=== PATIENT | female | born 2000 | race Two or more races ===

== ENCOUNTER 2025-01-09 02:10 | Observation (INO) | payer MEDICAID, SELFPAY ==
[2025-01-09] VITALS (33 sets, daily range): BP systolic 89–151; BP diastolic 52–126; PULSE 72–150; RESP 15–98; TEMP 36.3–37.1; O2SAT 95–100; BMI 33.1
--- NOTE | 2025-01-09 02:44 | EDNOTE_ITS ---
ED Abdominal Pain RME/HPI General Chief Complaint: Abdominal Pain Stated complaint: ABD PAIN Time seen by provider: 01/09/25 02:43 Arrival date/time: 01/09/25 02:10 RME / HPI RME / HPI narrative: This section includes all my notes and documentations, including HPI, PE, and ED course. Dilip Lerner MD HPI: 24 y/o female presents to ED BIB c/o sudden lower abdominal pain and almost passing out x 1.5 hours ago. states he caught patient before she fell to the floor. Denies vomiting but severe nausea. Pain began on the lower left side and spread to the left. Patient has an IUD inserted and denies any chance of . No other complaints. ROS: All negative except as documented in HPI. Physical Exam: General: Alert and oriented. In severe pain. Eyes: Conjunctivae and lids clear. ENT: No nasal congestion. Neck: Supple. Heart: RRR. Lungs: No respiratory distress. Good air movement. No rhonchi, wheezing, rales. Abdomen: Soft with severe lower tenderness. Normal bowel sounds. No distension. No rebound or guarding. Back: No CVA tenderness. Skin: Warm and dry. Neuro: Alert and oriented X 3. I reviewed all diagnostic test results. My interpretation of the EKG is NSR (99 bpm) with no ST-T changes. Dilip Lerner MD My review of the Transvaginal US report is pending. Blood tests and urine tests pending. At this point, diagnoses include ectopic , possibly ruptured. Treatment from me here included Sodium Chloride, Toradol, Zofran, Hydromorphone HCl. I discussed the case with Dr Dominguez, our CHANDELIER [employer]KER. About the presentation and exam and diagnostics and treatments here. And need of further care in the hospital. Will be here and see the patient. At 6 AM on 01/09/25, the care of the patient was transferred to Dr. Haines. Dilip Lerner MD Related Data Previous Rx's ?Medication ?Instructions ?Recorded hydrocodone 5 mg-acetaminophen 325 1 tab PO Q4H PRN pa in #30 tabs 01/09/25 mg tablet ketorolac 10 mg tablet 10 mg PO Q6H PRN pain 5 days #20 01/09/25 tabs ondansetron HCl 4 mg tablet 4 mg PO Q6H PRN nausea and 01/09/25 vomiting #20 tabs hydrocodone 5 mg-acetaminophen 325 1 tab PO Q6H PRN pa in #20 tabs 01/11/25 mg tablet ketorolac 10 mg tablet 10 mg PO Q6H PRN pain 5 days #20 01/11/25 tabs Allergies Allergy/AdvReac Type Severity Reaction Status Date / Time No Known Allergies Allergy Verified 01/11/25 10:27 Review of Systems Review of Systems Systems Reviewed: All systems reviewed, normal except as documented Narrative Review of Systems: Refer to HPI above. Past Medical History Past Medical History REPRODUCTIVE: Positive Previous Pregnancies (D&C 2015) ED Exam Narrative Physical exam: Refer to HPI above. Course Quality Measures none Orders Category Date Time Status Patient Condition Routine Admission 01/09/25 08:[address] in Surgical Day Care Routine Admission 01/09/25 08:25 Active Abdominal Binder if Pt Desires x1 Care 01/09/25 10:57 Completed Activity as Tolerated Routine Care 01/09/25 08:[address] Screening NOW Care 01/09/25 02:45 Completed EKG (ED ONLY) *Do not use* NOW Care 01/09/25 02:44 Completed Insert IV NOW Care 01/09/25 02:43 Completed Intake and Output Routine Care 01/09/25 10:57 Ordered Notify provider NEEDED Care 01/09/25 08:27 Completed Notify provider NEEDED Care 01/09/25 10:57 Completed Sequential Compression Device NOW Care 01/09/25 08:27 Completed Straight [In and Out Catheter] X1 Care 01/09/25 02:45 Completed Consult to Obstetrics Stat Cons 01/09/25 05:35 Ordered Diet Regular Diet 01/09/25 Dinner Active EKG (ED Only) Stat Exams 01/09/25 02:44 Draft EKG (ED Only) Stat Exams 01/09/25 02:44 Stop Req US transvaginal Stat Exams 01/09/25 02:46 Completed Amylase Stat Lab 01/09/25 02:55 Completed Beta HCG,Quantitative Stat Lab 01/09/25 02:55 Completed Bilirubin,Direct Stat Lab 01/09/25 02:55 Completed CBC AM DRAW Lab 01/10/25 05:29 Completed CBC Stat Lab 01/09/25 02:55 Completed CBC Stat Lab 01/09/25 11:06 Completed CMP [Comprehensive Metabolic Panel] Stat Lab 01/09/25 02:55 Completed CMP [Comprehensive Metabolic Panel] Stat Lab 01/09/25 11:06 Completed CRP [C-Reactive Protein] Stat Lab 01/09/25 02:55 Completed ESR [Sed Rate (ESR)] Stat Lab 01/09/25 02:55 Completed HCG Qualitative,Urine Stat Lab 01/09/25 02:55 Completed Lipase Stat Lab 01/09/25 02:55 Completed Magnesium Stat Lab 01/09/25 02:55 Completed Procalcitonin Stat Lab 01/09/25 02:55 Completed Type and Screen Stat Lab 01/09/25 09:35 Results UA, C/S IF [Urinalysis, C/S if Indicated] Stat Lab 01/09/25 02:55 Completed Urine Culture Stat Lab 01/09/25 02:55 Completed Acetaminophen Ivpb [Ofirmev Inj] 100 ml Med 01/09/25 08:51 Discontinued IV .STK-MED Acetaminophen Tab [Tylenol Tab] Med 01/09/25 10:57 Discontinued 325 mg PO Q4HR PRN Acetaminophen Tab [Tylenol Tab] Med 01/09/25 10:57 Discontinued 650 mg PO Q6HR PRN Albumin Human 5% Ivpb [Albuminar-5 Ivpb] Med 01/09/25 09:36 Discontinued 12.5 gm in 250 ml IV .STK-MED Bupivacaine Mpf 0.5% [Sensorcaine-Mpf Inj 0.5%] Med 01/09/25 08:10 Discontinued 30 ml .ROUTE .STK-MED ONE Glycopyrrolate Inj [Robinul Inj] Med 01/09/25 08:38 Discontinued 1 mg .ROUTE .STK-MED ONE HYDROcodone*/APAP 5/325 [Nettie 5/325] Med 01/09/25 10:57 Discontinued 1 tab PO Q4HR PRN HYDROcodone*/APAP 5/325 [Nettie 5/325] Med 01/09/25 10:57 Discontinued 2 tab PO Q6HR PRN HYDROmorphone INJ [Dilaudid Inj] Med 01/09/25 10:32 Discontinued 0.4 mg IV Q5M PRN HYDROmorphone INJ [Dilaudid Inj] Med 01/09/25 08:38 Discontinued 2 mg .ROUTE .STK-MED ONE HYDROmorphone INJ [Dilaudid Inj] Med 01/09/25 02:45 Discontinued 2 mg IVP X1 ONE HYDROmorphone INJ [Dilaudid Inj] Med 01/09/25 03:44 Discontinued 2 mg IVP X1 ONE Ibuprofen Tab [Motrin Tab] Med 01/09/25 10:57 Discontinued 800 mg PO Q8HR PRN Ketamine Inj Med 01/09/25 08:50 Discontinued 50 mg .ROUTE .STK-MED ONE Ketorolac Inj [Toradol Inj] Med 01/09/25 02:45 Discontinued 30 mg IVP X1 ONE LORazepam [Ativan Inj] Med 01/09/25 04:20 Discontinued 2 mg IVP X1 ONE Meperidine Inj [Demerol Inj] Med 01/09/25 10:32 Discontinued 12.5 mg IV Q5M PRN Midazolam Inj [Versed Inj] Med 01/09/25 08:37 Discontinued 2 mg .ROUTE .STK-MED ONE Milk Of Magnesia Susp [Mom Susp] Med 01/09/25 10:57 Discontinued 30 ml PO PRNMRX1 PRN Ondansetron Inj [Zofran Inj] Med 01/09/25 02:45 Discontinued 4 mg IV X1 ONE Ondansetron Inj [Zofran Inj] Med 01/09/25 10:32 Discontinued 4 mg IV X1 ONE PHENYLEPHRINE INJ in NS [Juan-synephrine Inj/Ns] Med 01/09/25 09:03 Discontinued 1,000 mcg .ROUTE .STK-MED ONE POTASSIUM CHL 10 mEq IVPB [Kcl Ivpb] Med 01/09/25 05:33 Discontinued 10 meq in 100 ml IV X1 Propofol Inj [Diprivan Inj] Med 01/09/25 08:37 Discontinued 200 mg IV .STK-MED ONE Ringers Lactated 1000 ml [Lactated Ringers] 1,000 ml Med 01/10/25 03:00 Discontinued IV 100 mls/hr Rocuronium Inj [Zemuron Inj] Med 01/09/25 08:37 Discontinued 100 mg .ROUTE .STK-MED ONE Simethicone [Mylicon Chew] Med 01/09/25 10:57 Discontinued 80 mg PO Q4HR PRN Sodium Chloride 0.9% 1000 ml [Ns] 1,000 ml Med 01/09/25 02:45 Discontinued IV 999 mls/hr Sugammadex Inj [Bridion Inj] Med 01/09/25 10:29 Discontinued 200 mg .ROUTE .STK-MED ONE Tranexamic Acid 1,000 mg Ivpb [Tranexamic Acid Ivpb] Med 01/09/25 10:05 Discontinued 1,000 mg in 100 ml IV .STK-MED ceFAZolin/D5W 1 GM IVPB [Ancef Ivpb] Med 01/09/25 08:30 Discontinued 1 gm in 50 ml IV X1 cefTRIAXone [Rocephin] 1,000 mg Med 01/09/25 04:01 Discontinued SODIUM CHLORIDE 0.9% (Popper) [Ns 0.9% (P)] 50 ml IV X1 fentaNYL INJ [Sublimaze Inj] Med 01/09/25 08:36 Discontinued 100 mcg .ROUTE .STK-MED ONE Code Status Routine Oth 01/09/25 08:23 Completed Oxygen Delivery PRN RT 01/09/25 10:32 Completed Transfer Order Routine Transfer 01/09/25 11:20 Completed Vital Signs Vital signs: Vital Signs Temperature 97.6 F 01/09/25 02:30 Pulse Rate 150 H 01/09/25 02:30 Respiratory Rate 20 01/09/25 02:30 Blood Pressure 102/72 01/09/25 02:30 Pulse Oximetry (%) 100 01/09/25 02:30 Oxygen Delivery Method Room Air 01/09/25 02:30 Abdominal Pain MDM MDM Narrative MDM Narrative:: Scribe Attestation: IBecky am scribing for and in the presence of Dr. Lerner. Provider Notation: Although this document has been carefully reviewed, there may still be some phonetic and other typographical errors. These errors are purely grammatical due to imperfections in the software program and should not be construed in any way to compromise the substance of the patient's medical care during this visit. 24 y/o female presents to ED BIB c/o sudden lower abdominal pain and passing out x 1.5 hours. states he caught patient before she fell to the floor. Denies vomiting. Pain began on the lower right and spread towards the left. Patient has an IUD inserted and denies any chance of . Patient data External records reviewed:: [facility] previous records Clinical information provided by:: patient and spouse () Social determinants that could affect healthcare access:: none Patient has the following chronic illnesses:: None reported How is presenting disease/condition affected by chronic disease/condition?: no chronic disease (None reported) Evaluation data The following diagnostics were reviewed and interpreted by me:: lab results, radiology exam(s) and EKG tracing(s) (My interpretation of the EKG: NSR (99 bpm) with no ST-T changes. Dilip Lerner MD) Lab and/or radiology exams considered but not ordered:: None Interpretation Summary: Possible ruptured ectopic Medications / Prescriptions Medications or Prescriptions considered but not ordered:: None Medication administrations:: Medication Administration History Discontinued Medications Acetaminophen (Acetaminophen 325 Mg Tablet) 325 mg PO Q4HR PRN PRN Reason: Patient rated pain 1 to 2 Stop: 02/08/25 10:56 Acetaminophen (Acetaminophen 325 Mg Tablet) 650 mg PO Q6HR PRN PRN Reason: Patient rated pain of 3 Stop: 02/08/25 10:56 Hydrocodone Bitart/Acetaminophen (Hydrocodone/Apap 5/325 Tablet) 1 tab PO Q4HR PRN PRN Reason: Patient rated pain 7 to 8 Stop: 01/14/25 10:56 Last Admin: 01/10/25 12:43 Dose: 1 tab Documented By: Admin: 01/10/25 05:54 Dose: 1 tab Documented By: Admin: 01/09/25 18:50 Dose: 1 tab Documented By: SUMEET Hydrocodone Bitart/Acetaminophen (Hydrocodone/Apap 5/325 Tablet) 2 tab PO Q6HR PRN PRN Reason: Patient rated pain 9 to 10 Stop: 01/14/25 10:56 Bupivacaine HCl (Bupivacaine Mpf 0.5% 30 Ml Vial) Confirm Administered Dose 30 ml .ROUTE .STK-MED ONE Stop: 01/09/25 08:11 Fentanyl Citrate (Fentanyl Cit Inj 50 Mcg/Ml Amp 2ml) Confirm Administered Dose 100 mcg .ROUTE .STK-MED ONE Stop: 01/09/25 08:37 Glycopyrrolate (Glycopyrrolate Inj 0.2 Mg/Ml Vial 5 Ml) Confirm Administered Dose 1 mg .ROUTE .STK-MED ONE Stop: 01/09/25 08:39 Hydromorphone HCl (Hydromorphone Inj 2 Mg/Ml Vial) 2 mg IVP X1 ONE Stop: 01/09/25 02:46 Last Admin: 01/09/25 06:40 Dose: 2 mg Documented By: ANSON Hydromorphone HCl (Hydromorphone Inj 2 Mg/Ml Vial) 2 mg IVP X1 ONE Stop: 01/09/25 03:45 Last Admin: 01/09/25 03:59 Dose: 2 mg Documented By: ANSON Hydromorphone HCl (Hydromorphone Inj 2 Mg/Ml Vial) Confirm Administered Dose 2 mg .ROUTE .STK-MED ONE Stop: 01/09/25 08:39 Hydromorphone HCl (Hydromorphone Inj 2 Mg/Ml Vial) 0.4 mg IV Q5M PRN PRN Reason: PAIN SCALE 7-10 (Severe Stop: 01/09/25 12:33 Last Admin: 01/09/25 13:52 Dose: 0.4 mg Documented By: WOLFGANG Sodium Chloride (Ns) 1,000 mls @ 999 mls/hr IV .Q1H1M ONE Stop: 01/09/25 03:45 Last Infusion: 01/09/25 05:32 Dose: Infused Documented By: Admin: 01/09/25 04:00 Dose: 999 mls/hr Documented By: ANSON Ceftriaxone Sodium 1,000 mg/ (Sodium Chloride) 50 mls @ 100 mls/hr IV X1 ONE Stop: 01/09/25 04:30 Last Infusion: 01/09/25 05:32 Dose: Infused Documented By: Admin: 01/09/25 04:38 Dose: 100 mls/hr Documented By: OUMAR Potassium Chloride (Kcl Ivpb) 10 meq in 100 mls @ 100 mls/hr IV X1 ONE Stop: 01/09/25 06:32 Last Infusion: 01/09/25 07:36 Dose: Infused Documented By: Admin: 01/09/25 06:15 Dose: 100 mls/hr Documented By: ANSON Cefazolin Sodium/Dextrose (Ancef Ivpb) 1 gm in 50 mls @ 100 mls/hr IV X1 ONE Stop: 01/09/25 08:59 Last Admin: 01/09/25 11:30 Dose: Not Given Documented By: WOLFGANG Non-Admin Reason: wrong time Acetaminophen (Ofirmev Inj) Confirm Administered Dose 100 mls @ ud IV .STK-MED ONE Stop: 01/09/25 08:52 Albumin Human (Albuminar-5 Ivpb) Confirm Administered Dose 12.5 gm in 250 mls @ ud IV .STK-MED ONE Stop: 01/09/25 09:37 Tranexamic Acid (Tranexamic Acid Ivpb) Confirm Administered Dose 1,000 mg in 100 mls @ ud IV .STK-MED ONE Stop: 01/09/25 10:06 Lactated Ringer's (Lactated Ringers) 1,000 mls @ 100 mls/hr IV .Q10H SUZAN Stop: 02/09/25 02:59 Lactated Ringer's (Lactated Ringers) 1,000 mls @ 100 mls/hr IV .Q10H SUZAN Stop: 02/08/25 11:40 Last Admin: 01/10/25 05:55 Dose: 100 mls/hr Documented By: Infusion: 01/10/25 05:55 Dose: Infused Documented By: Admin: 01/09/25 20:05 Dose: 100 mls/hr Documented By: Infusion: 01/09/25 20:05 Dose: Infused Documented By: Admin: 01/09/25 11:55 Dose: 100 mls/hr Documented By: WOLFGANG Ibuprofen (Ibuprofen Tab 400 Mg Tablet) 800 mg PO Q8HR PRN PRN Reason: PAIN SCALE 4-6 (Moderate Stop: 02/08/25 10:56 Last Admin: 01/09/25 16:33 Dose: 800 mg Documented By: SUMEET Ketamine HCl (Ketamine Inj 50 Mg/Ml Syringe) Confirm Administered Dose 50 mg .ROUTE .STK-MED ONE Stop: 01/09/25 08:51 Ketorolac Tromethamine (Ketorolac Inj 30 Mg/Ml Vial) 30 mg IVP X1 ONE Stop: 01/09/25 02:46 Last Admin: 01/09/25 03:46 Dose: Not Given Documented By: EE Non-Admin Reason: Cancelled by Provider Lorazepam (Lorazepam 2 Mg/Ml Vial) 2 mg IVP X1 ONE Stop: 01/09/25 04:21 Last Admin: 01/09/25 06:40 Dose: Not Given Documented By: EE Non-Admin Reason: Patient Refused Magnesium Hydroxide (Milk Of Magnesia Susp 30 Ml Udc) 30 ml PO PRNMRX1 PRN PRN Reason: CONSTIPATION Stop: 02/08/25 10:56 Meperidine HCl (Meperidine Inj 50 Mg/Ml Vial) 12.5 mg IV Q5M PRN PRN Reason: PAIN SCALE 1-3 (mild Stop: 01/09/25 12:32 Midazolam HCl (Midazolam Inj 1 Mg/Ml Vial 2 Ml) Confirm Administered Dose 2 mg .ROUTE .STK-MED ONE Stop: 01/09/25 08:38 Non-Formulary Medication (Methotrexate Im) 50 syr SC NOW ONE Stop: 01/10/25 10:01 Ondansetron HCl (Ondansetron Inj 2 Mg/Ml Inj 2 Ml) 4 mg IV X1 ONE; Protocol Stop: 01/09/25 02:46 Last Admin: 01/09/25 04:02 Dose: 4 mg Documented By: ANSON Ondansetron HCl (Ondansetron Inj 2 Mg/Ml Inj 2 Ml) 4 mg IV X1 ONE Stop: 01/09/25 10:33 Phenylephrine HCl (Phenylephrine Inj In Ns 100 Mcg/Ml 10 Ml Syringe) Confirm Administered Dose 1,000 mcg .ROUTE .STK-MED ONE Stop: 01/09/25 09:04 Propofol (Propofol Inj 10 Mg/Ml Vial 20 Ml) Confirm Administered Dose 200 mg IV .STK-MED ONE Stop: 01/09/25 08:38 Rocuronium [place] (Rocuronium Inj 10 Mg/Ml Vial 10 Ml) Confirm Administered Dose 100 mg .ROUTE .STK-MED ONE Stop: 01/09/25 08:38 Simethicone (Simethicone 80 Mg Chew) 80 mg PO Q4HR PRN PRN Reason: GAS Stop: 02/08/25 10:56 Sugammadex Sodium (Sugammadex Inj 100 Mg/Ml 2ml Vial) Confirm Administered Dose 200 mg .ROUTE .STK-MED ONE Stop: 01/09/25 10:30 From me, she received Sodium Chloride, Toradol, Zofran, Dilaudid. Consultations Consultation(s) initiated? (list below): Yes Consultation #1 (Physician, Specialty, Details): I discussed the case with Dr Dominguez, our CHANDELIER MAKER. About the presentation and exam and diagnostics and treatments here. And need of further care in the hospital. Will be here and see the patient. Diagnosis Differential diagnosis abdominal pain: abdominal pain, acute appendicitis, calculus of kidney, constipation, diverticulitis, endometriosis, gastroenteritis, pancreatitis, small bowel obstruction and other (Ectopic , UTI, pyelonephritis, sepsis) Most likely diagnosis given after review of the tests above:: Complete diagnostic results are pending. Admission Indicated Admission indicated?: not indicated Explain why admission is indicated or not indicated:: Complete diagnostic results are pending. Admission Request Was there a request for admission?: No Disposition Plan Disposition Plan: other (specify) (Care of the patient was transferred to Dr. Haines. ) Discharge Plan Plan Patient Disposition: Other Care w/in Hosp ([facility]) Disposition Comment: Stable Problem List Clinical Impression: UTI (urinary tract infection), Ectopic Patient/Caregiver Discharge Instructions Discharge Activity: activity as tolerated Other Activity Instructions:: Pelvic rest x 2 weeks. Return to clinic weekly to check quantitative hCGs. [facility] to [facility] at 1100 on 01/12/25 for MTX tx, Diet Instructions: General Diet
--- NOTE | 2025-01-09 02:44 | EKG_ITS ---
[facility] Test Date: 2025-01-09 Pat Name: TENZIN ORTEGA Department: Room: - Gender: Female Chuck Boner: : 2000 Requested By: Dilip Santiago Order Number: [id number] Reading MD: Dilip Santiago Measurements Intervals [place] Rate: 99 P: 42 TN: 143 QRS: 62 QRSD: 93 T: 57 QT: 339 QTc: 435 Interpretive Statements SINUS RHYTHM No previous ECG available for comparison /store/S0/[id number]/ecg/[id number].pdf
--- NOTE | 2025-01-09 02:46 | XR_ITS ---
Examination: Transvaginal ultrasound of the pelvis, complete Technique: Transvaginal sonographic images pelvis performed using ladd scale imaging Exam date and time: January 09, 2025 1535 hours INDICATIONS: Pelvic pain beginning January 08, 2025 FINDINGS: Uterus 8.2 cm No uterine mass or intrauterine gestation Intrauterine device in the lower uterine segment. Heterogeneous mass adjacent to the uterus with enlarged left ovary 7.0 x 5.4 x 4.6 cm Right ovary 4.0 cm arterial flow Left ovarian arterial flow IMPRESSION: This is an incomplete study, suspicious for ectopic Please repeat this study short-term
[2025-01-09 03:03] LABS: Collection Type, Urine Clean Catch
[2025-01-09 03:07] LABS: Basophils # (Auto) 0.1 Thou/mm3 (0.0-0.2); Basophils % (Auto) 0 % (0-2.5); Eosinophils # (Auto) 0.1 Thou/mm3 (0.0-0.5); Eosinophils % (Auto) 1 % (0-10); HCG Qualitative,Urine Positive; Hematocrit 33.4 % (36.0-46.0); Hemoglobin 11.4 g/dL (12.0-16.0); Immature Granulocytes % (Auto) 0 % (0-0); Immature Granulocytes Auto 0.06 Thou/mm3 (0.00-0.00); Lymphocytes # (Auto) 4.1 Thou/mm3 (1.0-4.8); Lymphocytes % (Auto) 24 % (10-50); Mean Corpuscular HGB Conc 34.1 g/dl (31.0-37.0); Mean Corpuscular Hemoglobin 26.9 pg (25.0-35.0); Mean Corpuscular Volume 79 fL (80-100); Monocytes # (Auto) 0.7 Thou/mm3 (0.0-0.8); Monocytes % (Auto) 4 % (0-12); Neutrophils # (Auto) 11.9 Thou/mm3 (1.8-7.7); Neutrophils % (Auto) 71 % (37-80); Nucleated Red Blood Cell % 0 /100 WBC (0); Platelet Count 312 Thou/mm3 (140-440); RDW Standard Deviation 37.3 fL (36.4-46.3); Red Blood Count 4.24 Miln/mm3 (4.00-5.20); White Blood Count 16.9 Thou/mm3 (3.6-11.0)
[2025-01-09 03:21] LABS: Bilirubin,Urine Negative (Negative); Blood,Urine Negative (Negative); Clarity,Urine Turbid (Clear/Hazy); Color,Urine Yellow (Lt Yel-Yel); Glucose, Urine Negative (Negative); Ketones,Urine Trace (Negative); Leukocyte Esterase,Urine Negative (Negative); Nitrite,Urine Negative (Negative); Protein,Urine 2+ (Neg - Trace); RBC,Urine 2 /hpf (0-3); Specific Gravity,Urine 1.046 (1.001-1.035); Squamous Epithelial Cell,Urine 4 /hpf (0-5); WBC,Urine 18 /hpf (0-5)
[2025-01-09 03:26] LABS: Culture Indicated,Urine Yes
[2025-01-09 03:43] LABS: Sed Rate (ESR) 12 mm/hr (0-20)
[2025-01-09] MEDS: HYDROmorphone INJ 2 MG/ML VIAL IVP ×2 (03:59→06:40)
[2025-01-09] MEDS: SODIUM CHLORIDE 0.9% 1000 ML 1,000 ML 999 ML IV (04:00)
[2025-01-09] MEDS: ONDANSETRON INJ 2 MG/ML INJ 2 ML 4 MG IV (04:02)
[2025-01-09 04:27] LABS: Alanine Aminotransferase 69 U/L (10-49); Albumin/Globulin Ratio 1.5 (1.2-2.2); Alkaline Phosphatase 73 U/L (46-116); Amylase 56 U/L (30-118); Anion Gap 10 (7-16); Aspartate Amino Transferase 57 U/L (0-34); BUN/Creatinine Ratio 9 Ratio (12-20); Beta HCG,Quantitative 1806 mIU/mL (<5.0); Bilirubin,Direct 0.3 mg/dL (0.0-0.3); Blood Urea Nitrogen 9 mg/dL (9-23); C-Reactive Protein < 0.5 mg/dL (0.0-0.9); Carbon Dioxide 21.1 mMol/L (20.0-31.0); Chloride 105 mMol/L (98-107); Estimated Creatinine Clearance 94.6 mL/min (>60); Globulin 2.7 gm/dL (2.3-3.5); Glucose 173 mg/dL (74-106); Lipase 28 U/L (12-53); Magnesium 1.6 mg/dL (1.6-2.6); Osmolality,Calculated 274 (275-295); Procalcitonin < 0.04 ng/ml (0.0-0.49); Sodium 136 mMol/L (136-145); Total Protein 6.7 gm/dL (5.7-8.2); eGFR > 60 See Note
[2025-01-09] MEDS: cefTRIAXone 1,000 MG in SODIUM CHLORIDE 0.9% (Popper) 50 ML 100 MG IV (04:38)
[2025-01-09] MEDS: POTASSIUM CHL 10 mEq IVPB 10 MEQ/100 ML BAG 100 MEQ IV (06:15)
--- NOTE | 2025-01-09 06:21 | PD.EDADDENDU ---
Emergency Room Addendum Addendum Narrative: 0600: Care assumed from Dr. Lerner, the previous shift emergency physician. Past medical, surgical, social and family history reviewed. Vitals and home medications reviewed. I will assume the care of the patient at this time, pending remainder of diagnostic tests and final disposition. Please refer to the emergency department record for history and examination from initial visit.? Physical exam by me shows patient under no acute distress at this time. Patient left for surgery at 0830 hours. Diagnoses: - UTI - Ectopic RADIOLOGY Procedure(s): US transvaginal Accession Number(s): [id number] cc: Dilip Lerner MD; Kan Raza MD; NO PRIMARY/FAMILY,PHYSICIAN~ Examination: Transvaginal ultrasound of the pelvis, complete Technique: Transvaginal sonographic images pelvis performed using ladd scale imaging Exam date and time: January 09, 2025 1535 hours INDICATIONS: Pelvic pain beginning January 08, 2025 FINDINGS: Uterus 8.2 cm No uterine mass or intrauterine gestation Intrauterine device in the lower uterine segment. Heterogeneous mass adjacent to the uterus with enlarged left ovary 7.0 x 5.4 x 4.6 cm Right ovary 4.0 cm arterial flow Left ovarian arterial flow IMPRESSION: This is an incomplete study, suspicious for ectopic Please repeat this study short-term Dictated By: Kan Raza MD
--- NOTE | 2025-01-09 07:50 | PD.GYNCONS ---
LOGISTICS SUPPORT HPI Data of Consult Patient: new to practice Consult date: 01/09/25 Primary Care Provider: Physician No Primary/Family Consult Narrative Reason for consult: ectopic History of present illness: The patient is a 24-year-old -0-1-3 with a history of vaginal delivery x 3 in the past. Her children are age 7, 2, and 1. The patient was seeing an PRODUCT ADVISOR in [place] and had an IUD placed after the of her last child. It has been in place almost a year. She presented to the emergency room at around 2:00 in the morning with sudden onset of abdominal pain. Thr patient had a syncopal episode at home. Her brought her into the emergency room. The patient has a quantitative hCG of 1806 and a complex mass on an adnexa with some free fluid suggestive of a ruptured ectopic . Patient is having quite a bit of pain requiring IV Dilaudid in the emergency room. Her blood type is pending at the time of dictation. Patient is consented for a laparoscopic unilateral salpingectomy, removal of IUD, possible laparotomy. She denies any heavy vaginal bleeding or possibly passing clots. She has not checked her IUD strings in a while. cc:: cc: Past Medical History Past Medical History Comments PMH COMMENT: Patient denies any significant past medical history. Specifically no asthma, no diabetes, no hypertension. Patient has a history of vaginal delivery x 3 in the past. She had 1 missed AB with a D&C. This is the only time she has been under general anesthesia. She denies any laparoscopic surgery. She denies removal of gallbladder appendix or any other surgery besides her D&C. Meds Home Medications and Allergies Allergies Allergy/AdvReac Type Severity Reaction Status Date / Time No Known Allergies Allergy Verified 01/09/25 02:45 Exam - LOGISTICS SUPPORT Vital Signs Temp Pulse Resp BP Pulse Ox O2 Del Method 97.7 F 82 21 H 121/80 99 Room Air 01/09/25 07:22 01/09/25 07:22 01/09/25 07:22 01/09/25 07:22 01/09/25 07:22 01/09/25 07:22 Narrative Exam Patient appears pale. She is alert and cooperative. She had Dilaudid approximately an hour before I was called to bedside to examine her. Her is at bedside. Constitutional Constitutional: mild distress and cooperative Routine Abdominal Exam Abdominal: Present soft, tenderness, rebound and guarding Comments: Abdomen is soft it is diffusely tender no scars are present. Pelvic exam is deferred until the OR. LOGISTICS SUPPORT - Results Labs 01/09/25 02:55 01/09/25 02:55 Labs: Short CBC 01/09/25 Range/Units 02:55 WBC 16.9 H (3.6-11.0) Thou/mm3 Hgb 11.4 L (12.0-16.0) g/dL Hct 33.4 L (36.0-46.0) % Plt Count 312 (140-440) Thou/mm3 BMP 01/09/25 02:55 Sodium 136 Potassium 3.0 L Chloride 105 Carbon Dioxide 21.1 BUN 9 Creatinine 1.0 Glucose 173 H Calcium 9.0 Liver Function 01/09/25 Range/Units 02:55 Total Bilirubin 1.0 (0.3-1.2) mg/dL Direct Bilirubin 0.3 (0.0-0.3) mg/dL AST 57 H (0-34) U/L ALT 69 H (10-49) U/L Alkaline Phosphatase 73 (46-116) U/L Albumin 4.0 (3.5-5.0) gm/dL Urine 01/09/25 Range/Units 02:55 Urine Color Yellow (Lt Yel-Yel) Urine Clarity Turbid A (Clear/Hazy) Urine pH 6.0 (5.0-7.0) Ur Specific [place] 1.046 H (1.001-1.035) Urine Protein 2+ A (Neg - Trace) Urine Glucose (UA) Negative (Negative) Imaging and Cardiology US - abdomen: Status: image reviewed by me Additional comments: Pelvic ultrasound performed reviewed by me. Complex mass present with some free fluid suggestive of a ruptured ectopic . Assessment and Plan Assessment and plan (1) Ruptured right tubal ectopic causing hemoperitoneum: Status: Acute Assessment and plan: Patient is consented for a laparoscopic unilateral salpingectomy, possible laparotomy. Removal of IUD. The risks of surgery were discussed with patient and her . The risks include bleeding infection blood transfusion damage to bowel bladder blood vessels other organs prolonged hospital stay should any of the above occur. All questions were answered all consents were signed. Of note the also signed the consent as the patient had been given Dilaudid approximately an hour and a half prior to being consented for surgery.
--- NOTE | 2025-01-09 08:16 | PC.NURSE ---
REPORT GIVEN TO KEON ATKINS IN SURGERY ALL QUESTIONS ANSWERED
--- NOTE | 2025-01-09 10:48 | SUR.PHASEI ---
pt received from OR in recovery bay 1. pt asleep but responds to voice, breathing unlabored on oxymask 8l. v/s stable. pt dressing to abd dermabond x3 and periapd cdi. report received from Giovanna Carpio and Caesar DUNN.
[2025-01-09 11:17] LABS: Basophils % (Auto) 0 % (0-2.5); Eosinophils % (Auto) 0 % (0-10); Hematocrit 24.1 % (36.0-46.0); Immature Granulocytes % (Auto) 1 % (0-0); Immature Granulocytes Auto 0.07 Thou/mm3 (0.00-0.00); Lymphocytes # (Auto) 1.1 Thou/mm3 (1.0-4.8); Lymphocytes % (Auto) 8 % (10-50); Mean Corpuscular Hemoglobin 27.8 pg (25.0-35.0); Mean Corpuscular Volume 82 fL (80-100); Monocytes # (Auto) 0.7 Thou/mm3 (0.0-0.8); Monocytes % (Auto) 5 % (0-12); Neutrophils # (Auto) 11.7 Thou/mm3 (1.8-7.7); Neutrophils % (Auto) 86 % (37-80); Nucleated Red Blood Cell % 0 /100 WBC (0); Platelet Count 219 Thou/mm3 (140-440); RDW Standard Deviation 38.8 fL (36.4-46.3); Red Blood Count 2.95 Miln/mm3 (4.00-5.20); White Blood Count 13.5 Thou/mm3 (3.6-11.0)
[2025-01-09 11:24] LABS: Hemoglobin 8.2 g/dL (12.0-16.0)
[2025-01-09 11:33] LABS: Alanine Aminotransferase 51 U/L (10-49); Albumin, Serum 3.3 gm/dL (3.5-5.0); Albumin/Globulin Ratio 1.6 (1.2-2.2); Alkaline Phosphatase 52 U/L (46-116); Anion Gap 8 (7-16); Aspartate Amino Transferase 32 U/L (0-34); BUN/Creatinine Ratio 9 Ratio (12-20); Bilirubin,Total 0.5 mg/dL (0.3-1.2); Blood Urea Nitrogen 6 mg/dL (9-23); Calcium 7.1 mg/dL (8.3-10.6); Calcium (Corrected) 7.7 mg/dL (8.5-10.1); Carbon Dioxide 20.2 mMol/L (20.0-31.0); Chloride 106 mMol/L (98-107); Creatinine (Component) 0.7 mg/dL (0.6-1.3); Estimated Creatinine Clearance 135.2 mL/min (>60); Globulin 2.1 gm/dL (2.3-3.5); Glucose 104 mg/dL (74-106); Osmolality,Calculated 265 (275-295); Potassium 4.4 mMol/L (3.4-5.1); Sodium 134 mMol/L (136-145); Total Protein 5.4 gm/dL (5.7-8.2); eGFR > 60 See Note
[2025-01-09] MEDS: RINGERS LACTATED 1000 ML 1,000 ML 100 ML IV ×2 (11:55→20:05)
--- NOTE | 2025-01-09 13:30 | SUR.PHASEII ---
pt c/o pain to lower abd and difficulty urinating. bladder scan performed 523ml of urine seen on scan. Dr. Rodriguez contacted. new orders received.
[2025-01-09] MEDS: HYDROmorphone INJ 2 MG/ML VIAL 0.4 MG IV (13:52)
--- NOTE | 2025-01-09 14:00 | SUR.PHASEII ---
pt awake and alert, breathing unlabored on room air. v/s stable. pt dressing to abd x3 dermabond and peripad cdi. report called to Aleena Carpio. pt will be transferred to room at this time.
--- NOTE | 2025-01-09 15:50 | PC.NURSE ---
Contacted Dr Rodriguez over the phone per pt would like to talk to MD in regards to question of her recent sx. Per MD will come see pt this afternoon
[2025-01-09] MEDS: IBUPROFEN TAB 400 MG TABLET 800 MG PO (16:33)
[2025-01-09] MEDS: HYDROcodone/APAP 5/325 TABLET 1 TAB PO (18:50)
--- NOTE | 2025-01-09 18:53 | PD.GYNPROC ---
Operative Note - CLINICAL SALES CONSULTANT Procedure Date of procedure: 01/09/25 Procedure Performed: Diagnostic laparoscopy, right partial oophorectomy. Indication: The patient is a 24-year-old -0-1-3 status post vaginal delivery x 3 in the past.The last baby was born a year ago. The patient had a ParaGard IUD in for contraception that was placed less than a year ago. She was not feeling right over the last day or two. She reported some nausea. Some diffuse abdominal pain. Her pain worsened around midnight on 01/09/2025 and the patient did have a syncopal episode at home. Her brought her to the emergency room. A quantitative hCG was noted to be 1800. A pelvic ultrasound was performed revealing what appeared to be a complex mass in the pelvis. As patient's quant was elevated with an IUD in place with what was thought to be clots and free fluid in the abdomen, the patient was diagnosed with a probable ruptured ectopic and consented for a laparoscopy and unilateral salpingectomy, possible laparotomy, and removal of IUD in the OR. Pre-Op diagnosis: 1. Hemoperitoneum with syncopal episode 2. Quantitative hCG of [address] 4. Suspected ruptured ectopic Post-Op diagnosis: Same. And ruptured right corpus luteum cyst. Anesthesia type: General Procedure description: After obtaining informed consent, the patient was brought back to the operating room and general anesthesia administered. She was then prepped and draped in the dorsal lithotomy position using Koby stirrups in a normal sterile fashion. The patient's bladder was emptied with an In-N-Out catheter. The patient had been given Rocephin at 5:00 in the morning which was within 4 hours of surgery. A speculum was inserted in the patient's vagina and the anterior lip of the cervix grasped with a single-tooth tenaculum the 12 o'clock position. A ParaGard IUD was removed in its entirety. Of note this was sitting in the lower uterine segment with a portion of the IUD body present at the ectocervical os. A uterine manipulator was then inserted. The surgeon's gloves was changed and a 5 mm incision was made in her periumbilical fold. A Veress needle was introduced and correct intra-abdominal placement confirmed via the water drop test. The abdomen was allowed to insufflate with 3 L of CO2 gas. A 5 mm trocar and sleeve were introduced with a 5 mm camera in the umbilical incision and correct position visually confirmed. A 5 mm incison was made in her left lower quadrant and a 5 mm trocar and sleeve introduced under direct visualization. An 8 mm incision was made in her right lower quadrant and a 8 mm trocar and sleeve were introduced under direct visualization. Upon inspection of the patient's peritoneal cavity, a hemoperitoneum was noted with approximately 500 cc of clots and fresh blood present. This was removed using a Dunnell irrigation and suction device. Once all the blood and the clots were removed, the patient's pelvis was carefully examined laparoscopically. Her uterus was noted to be normal, her left fallopian tube normal, her left ovary normal and her right fallopian tube was also completely normal. Upon further inspection, blood was found to be dripping consistently from what appeared to be a rent in the right ovary suggestive of a possible ruptured corpus luteal cyst. Pictures were taken of all of the above findings. A harmonic scalpel was then placed through one of the instrument ports. The right ovary was grasped with an atraumatic grasper and of the the portion of the ovary that was bleeding was transected using the harmonic scalpel. This was removed from the operating field through one of the instrument ports. The ovarian transection site was noted to be bleeding and attempts to cauterize this were made using the harmonic scalpel. This was not successful, and a Kleppinger bipolar electrocautery device was called for. The ovarian transection site was then cauterized using Kleppinger bipolar cautery until excellent hemostasis was noted. The patient was repositioned in reverse trendelenberg and the pelvis copiously irrigated using the Dunnell irrigation device. All clots and blood were removed. The right ovarian transection site was then reexamined and noted to be hemostatic. Surgicel hemostatic powder was placed to obtain excellent hemostasis. The procedure was then terminated. All instruments were removed from the patient's abdomen and the CO2 gas allowed to resolve. All abdominal incisions were closed using subcuticular sutures of 4-0 Monocryl. All instrumentation was then removed from the patient's vagina and the tenaculum site noted to be hemostatic. The patient tolerated the procedure well, sponge, lap ,needle and instrument counts were correct x 2 and the patient went to the recovery area awake and in stable condition. Pathology was portion of right ovary. Of note the patient will be treated with methotrexate prior to discharge from the hospital as it is still unclear where the ectopic was located. Fluids: crystalloid and other (250 cc albumin) Fluid amount (mL): 3,000 Urine output (mL): 20 Specimen: right ovary (Portion of the right ovary.) Implants: None Estimated blood loss (ml): 500 Findings: Hemoperitoneum with approximately 500 cc of blood and clots present at the beginning of surgery. Suspected ruptured right corpus luteum cyst. Normal uterus, left ovary and bilateral fallopian tubes. Normal appendix. Normal liver. No signs of endometriosis or scarring that in the pelvis. No uterine fibroids Complications: none Surgical staff Operation Date: 01/09/25 08:15 Case Staff CHIEF ENGINEER DRILLING AND RECOVERY: Woody Oviedo RN First Assistant: Mark Araiza Diagnosis Discharge Diagnosis (1) Ruptured corpus luteum: Status: Acute (2) Ectopic : Status: Acute Problem details: Patient will be treated with methotrexate prior to discharge (3) Hemoperitoneum: Status: Acute Problem List Completed Was Problem List Reviewed/Reconciled?: Yes (2) Ectopic Qualifiers: Location of ectopic : unspecified location Intrauterine status: without intrauterine Qualified Code(s): O00.90 - Unspecified ectopic without intrauterine
--- NOTE | 2025-01-09 19:31 | PD.GYNPROG ---
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 Her children are age 7, 2, and 1. The patient was seeing an COMMERCIAL TIRE SERVICE TECHNICIAN in [place] and had an IUD placed after the of her last child. It has been in place almost a year. She presented to the emergency room at around 2:00 in the morning with sudden onset of abdominal pain. Thr patient had a syncopal episode at home. Her brought her into the emergency room. The patient has a quantitative hCG of 1806 and a complex mass on an adnexa with some free fluid suggestive of a ruptured ectopic . Patient is having quite a bit of pain requiring IV Dilaudid in the emergency room. Her blood type is pending at the time of dictation. Patient is consented for a laparoscopic unilateral salpingectomy, removal of IUD, possible laparotomy. She denies any heavy vaginal bleeding or possibly passing clots. She has not checked her IUD strings in a while. Subjective: patient reports nausea and pain not well controlled Exam Vital Signs Temp Pulse Resp BP Pulse Ox O2 Del Method O2 Flow Rate 98.0 F 87 18 102/54 L 96 Room Air 8 01/09/25 15:45 01/09/25 16:02 01/09/25 16:02 01/09/25 15:45 01/09/25 15:45 01/09/25 15:45 01/09/25 10:48 Narrative Exam Patient appears pale. She states her pain is controlled with oral pain medication but she is still very sore when it wears off. She does not want to try a general diet because she states her throat hurts from her intubation. She has tolerated clears. No nausea or vomiting . Her laparoscopic procedure and pictures were reviewed with her today and all questions answered. She most likely ruptured a right corpus luteal cyst. Rarely, she could instead have suffered a ruptured ectopic on her right ovary. As patient's quantitative hCG is still 1800 and both fallopian tubes appeared normal and the patient had an IUD in her intrauterine cavity with no intrauterine seen, I recommend MTX prior to discharge. Due to hospital policy, the methotrexate will be given as an outpatient at the cancer center. Patient is agreement with with MTX treatment and desires a dose of the MTX as soon as possible. She will be followed closely as an outpatient with weekly quantitative hCGs in my office until her quantitative hCGs are 0. Urinary Catheter Management Cath placed during this visit: no PAVING AND SURFACING LABOURER - PN: Obj Data Labs 01/09/25 11:06 01/09/25 11:06 Labs: Laboratory Results - last 24 hr 01/09/25 01/09/25 01/09/25 02:55 09:35 11:06 WBC 16.9 H 13.5 H RBC 4.24 2.95 L Hgb 11.4 L 8.2 L D Hct 33.4 L 24.1 L MCV 79 L 82 MCH 26.9 27.8 MCHC 34.1 34.0 RDW Std Deviation 37.3 38.8 Plt Count 312 219 D Neut % (Auto) 71 86 H Lymph % (Auto) 24 8 L [place] % (Auto) 4 5 Eos % (Auto) 1 0 Baso % (Auto) 0 0 Neut # (Auto) 11.9 H 11.7 H Lymph # (Auto) 4.1 1.1 [place] # (Auto) 0.7 0.7 Eos # (Auto) 0.1 0.0 Baso # (Auto) 0.1 0.0 Immature Gran # (Auto) 0.06 H 0.07 H Absolute Nucleated RBC 0.00 0.00 Immature Gran % 0 1 H Nucleated RBC % 0 0 ESR 12 Sodium 136 134 L Potassium 3.0 L 4.4 D Chloride 105 106 Carbon Dioxide 21.1 20.2 Anion Gap 10 8 BUN 9 6 L Creatinine 1.0 0.7 Estim Creat Clear Calc 94.6 135.2 eGFR > 60 > 60 BUN/Creatinine Ratio 9 L 9 L Glucose 173 H 104 D Calculated Osmolality 274 L 265 L Calcium 9.0 7.1 L D Corrected Calcium 9.0 7.7 L Magnesium 1.6 Total Bilirubin 1.0 0.5 D Direct Bilirubin 0.3 AST 57 H 32 ALT 69 H 51 H Alkaline Phosphatase 73 52 D C-Reactive Prot, Quant < 0.5 Total Protein 6.7 5.4 L Albumin 4.0 3.3 L D Globulin 2.7 2.1 L Albumin/Globulin Ratio 1.5 1.6 Amylase 56 Lipase 28 Procalcitonin < 0.04 HCG, Qual Cancelled Beta HCG, Quant 1806 Ur Collection Type Clean Catch Urine Color Yellow Urine Clarity Turbid A Urine pH 6.0 Ur Specific [place] 1.046 H Urine Protein 2+ A Urine Glucose (UA) Negative Urine Ketones Trace Urine Blood Negative Urine Nitrite Negative Urine Bilirubin Negative Urine Urobilinogen (Auto) 3.0 Ur Leukocyte Esterase Negative Urine RBC 2 Urine WBC 18 H Ur Squamous Epith Cells 4 Urine Bacteria None Ur Culture Indicated? Yes Urine HCG, Qual Positive Blood Type A Positive Antibody Screen NEGATIVE Crossmatch See Detail Blood Bank Wristband ID Yes PAVING AND SURFACING LABOURER - A/P Assessment and plan (1) Ruptured corpus luteum: Problem details: 2 units of blood are on hold. Patient's preop hemoglobin was 11. Her postop was 8. Recheck CBC in morning Status: Acute (2) Ectopic : Problem details: Patient will be treated with methotrexate prior to discharge Status: Acute (3) Hemoperitoneum: Status: Acute Postoperative Procedures: Procedures Operation Date: 01/09/25 08:15 Actual Procedure Side Surgeon p Laparoscopy, Partial Right Oopherectomy [facility]), s Uterine IUD removal [facility] ([facility]), Postoperative day: 0 Postoperative status: doing well, urinary retention (Frazier catheter placed in recovery room as patient could not void.) and anemia Postoperative plan: advance diet Time Spent With Patient Time: Total time spent is greater than 50% in coordination of care (as documented) at patient's floor/unit and/or counseling patient: Time with patient: 25 - 35 minutes
--- NOTE | 2025-01-09 22:14 | PC.NURSE ---
Dr. Rodriguez was made aware about the pt's request to take out spangler, Ok to take out spangler cath per dr. Rodriguez.
[2025-01-10] VITALS (13 sets, daily range): BP systolic 90–117; BP diastolic 56–80; PULSE 81–100; RESP 17–99; TEMP 36.3–36.7; O2SAT 95–99
[2025-01-10] MEDS: HYDROcodone/APAP 5/325 TABLET 1 TAB PO ×2 (05:54→12:43)
[2025-01-10] MEDS: RINGERS LACTATED 1000 ML 1,000 ML 100 ML IV (05:55)
[2025-01-10 06:57] LABS: Basophils % (Auto) 0 % (0-2.5); Eosinophils # (Auto) 0.1 Thou/mm3 (0.0-0.5); Eosinophils % (Auto) 1 % (0-10); Immature Granulocytes % (Auto) 0 % (0-0); Immature Granulocytes Auto 0.01 Thou/mm3 (0.00-0.00); Lymphocytes # (Auto) 2.6 Thou/mm3 (1.0-4.8); Lymphocytes % (Auto) 48 % (10-50); Mean Corpuscular HGB Conc 34.8 g/dl (31.0-37.0); Mean Corpuscular Hemoglobin 27.5 pg (25.0-35.0); Mean Corpuscular Volume 79 fL (80-100); Monocytes # (Auto) 0.3 Thou/mm3 (0.0-0.8); Monocytes % (Auto) 6 % (0-12); Neutrophils # (Auto) 2.4 Thou/mm3 (1.8-7.7); Neutrophils % (Auto) 44 % (37-80); Nucleated Red Blood Cell % 0 /100 WBC (0); Platelet Count 171 Thou/mm3 (140-440); Red Blood Count 2.55 Miln/mm3 (4.00-5.20); White Blood Count 5.4 Thou/mm3 (3.6-11.0)
[2025-01-10 07:42] LABS: Hematocrit 20.1 % (36.0-46.0)
--- NOTE | 2025-01-10 09:32 | PC.CC ---
Request assess access to injectable medication ordered by Dr. Yon Rodriguez. Per MD note, patient requiring methotrexate injection. Corresponding procedure code [id number]. Patient has [employer]. Per [facility] provider portal, patient does not have an IPA. S/W [facility] provider line who confirmed the responsible financial libertarian is [facility] and this procedure does not require a prior authorization. Confirmed [facility] medication [facility]. Updated Flash Gongora RN and KRISSY Dickey.
--- NOTE | 2025-01-10 12:20 | PD.GYNPROG ---
Documentation for date of: 01/10/25 SUPERVISOR COOPERAGE SHOP Subjective Subjective Interval history: The patient is a 24-year-old -0-1-3 with a history of vaginal delivery x 3 in the past. Her children are age 7, 2, and 1. The patient was seeing an MEDICAL MANAGEMENT SPECIALIST in [place] and had an IUD placed after the of her last child. It has been in place almost a year. She presented to the emergency room at around 2:00 in the morning with sudden onset of abdominal pain. Thr patient had a syncopal episode at home. Her brought her into the emergency room. The patient has a quantitative hCG of 1806 and a complex mass on an adnexa with some free fluid suggestive of a ruptured ectopic . Patient is having quite a bit of pain requiring IV Dilaudid in the emergency room. Her blood type is pending at the time of dictation. Patient is consented for a laparoscopic unilateral salpingectomy, removal of IUD, possible laparotomy. She denies any heavy vaginal bleeding or possibly passing clots. She has not checked her IUD strings in a while. The patient underwent a laparoscopy and Right partial oophorectomy with evacuation of a large hemoperitoneum on 01/09/25. Please see Op note for further details. The patient was admitted for OBS overnight to recheck hemoglobin. 2 U PRBC on hold. The am of 01/10/25 the patient was rounded on and her Hgb was 7. She was transfused 2 U PRBC. She needs MTX and will need to be given this at the cancer center. Subjective: patient reports feeling better, pain is well controlled and patient is tolerating oral intake Exam Vital Signs Temp Pulse Resp BP Pulse Ox O2 Del Method O2 Flow Rate 97.8 F 84 17 102/62 97 Room Air 8 01/10/25 12:14 01/10/25 12:14 01/10/25 12:14 01/10/25 12:14 01/10/25 12:14 01/10/25 08:00 01/09/25 20:00 Constitutional Constitutional: cooperative Comments: Pale. Routine Abdominal Exam Abdominal: Present soft Comments: All incisions are C/D/I Urinary Catheter Management Cath placed during this visit: no SUPERVISOR COOPERAGE SHOP - PN: Obj Data Labs 01/10/25 05:29 01/09/25 11:06 Labs: Laboratory Results - last 24 hr 01/09/25 01/10/25 09:35 05:29 WBC 5.4 D RBC 2.55 L Hgb 7.0 L Hct 20.1 L* MCV 79 L MCH 27.5 MCHC 34.8 RDW Std Deviation 39.0 Plt Count 171 D Neut % (Auto) 44 Lymph % (Auto) 48 [place] % (Auto) 6 Eos % (Auto) 1 Baso % (Auto) 0 Neut # (Auto) 2.4 Lymph # (Auto) 2.6 [place] # (Auto) 0.3 Eos # (Auto) 0.1 Baso # (Auto) 0.0 Immature Gran # (Auto) 0.01 H Absolute Nucleated RBC 0.00 Immature Gran % 0 Nucleated RBC % 0 Blood Type A Positive Antibody Screen NEGATIVE Crossmatch See Detail Blood Bank Wristband ID Yes SUPERVISOR COOPERAGE SHOP - A/P Assessment and plan (1) Ruptured corpus luteum: Problem details: 2 units of blood are on hold. Patient's preop hemoglobin was 11. Her postop was 8. Recheck CBC in morning Status: Acute (2) Ectopic : Problem details: Patient will be treated with methotrexate prior to discharge Status: Acute (3) Hemoperitoneum: Problem details: Transfuse 2 U PRBC now then DC home. Status: Acute Postoperative Procedures: Procedures Operation Date: 01/09/25 08:15 Actual Procedure Side Surgeon p Laparoscopy, Partial Right Oopherectomy [facility] ([facility])MD s Uterine IUD removal Marina [facility] ([facility])MD Postoperative status: doing well and anemia Postoperative plan: routine post-op care and discharge Time Spent With Patient Time: Total time spent is greater than 50% in coordination of care (as documented) at patient's floor/unit and/or counseling patient: Time with patient: 25 - 35 minutes
--- NOTE | 2025-01-10 13:21 | ESDS_ITS ---
Planned Discharge Date 01/10/25 DS: Providers Provider Date of admission: 01/09/25 11:24 Primary care physician: Physician No Primary/Family Admitting Provider: Marina [facility] MD ([facility]) Attending Provider on Admission: Edmundo Boogie MD Consults: 01/09/25 05:35 Consult to Obstetrics Stat Comment: Ectopic Consulting Provider: Lupillo Dominguez Attending Provider on DC: Marina Rodriguez MD ([facility]) Discharging Provider: Marina [facility] MD ([facility]) Anticipated date of discharge: 01/10/25 DS: Diagnosis Discharge Diagnosis (1) Ectopic : Status: Acute Assessment & Plan: Pt to be given MTX at the [facility] center 01/12/25 at 11 am (2) Ruptured corpus luteum: Status: Acute (3) Acute posthemorrhagic anemia: Status: Acute Assessment & Plan: s/p 2 U PRBC Problem List Completed Was Problem List Reviewed/Reconciled?: Yes Hospital Course Hospital Course Hospital course: The patient is a 24-year-old -0-1-3 with a history of vaginal delivery x 3 in the past. Her children are age 7, 2, and 1. The patient was seeing an FERRY HAND in [place] and had an IUD placed after the of her last child. It has been in place almost a year. She presented to the emergency room at around 2:00 in the morning with sudden onset of abdominal pain. Thr patient had a syncopal episode at home. Her brought her into the emergency room. The patient has a quantitative hCG of 1806 and a complex mass on an adnexa with some free fluid suggestive of a ruptured ectopic . Patient is having quite a bit of pain requiring IV Dilaudid in the emergency room. Her blood type is pending at the time of dictation. Patient is consented for a laparoscopic unilateral salpingectomy, removal of IUD, possible laparotomy. She denies any heavy vaginal bleeding or possibly passing clots. She has not checked her IUD strings in a while. The patient underwent a laparoscopy and Right partial oophorectomy with evacuation of a large hemoperitoneum on 01/09/25. Please see Op note for further details. The patient was admitted for OBS overnight to recheck hemoglobin. 2 U PRBC on hold. The am of 01/10/25 the patient was rounded on and her Hgb was 7. She was transfused 2 U PRBC. She needs MTX and will need to be given this at the cancer center. 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 Incisions C/D/I Constitutional Constitutional: no acute distress Discharge Plan Plan Patient Disposition: HOME (Self Care) Disposition Comment: Stable Prescriptions/Referrals Prescriptions/Med Rec: New hydrocodone-acetaminophen 5-325 mg tablet 1 tab PO Q4H MDD 6 PRN (Reason: pain) Qty: 30 0RF ondansetron HCl 4 mg tablet 4 mg PO Q6H PRN (Reason: nausea and vomiting) Qty: 20 0RF ketorolac 10 mg tablet 10 mg PO Q6H PRN (Reason: pain) 5 Days Qty: 20 0RF Referrals: Jennifer ([facility]),Marina Carballo MD [Physician] - No Primary/Family,Physician [Primary Care Provider] - In 1 week Patient/Caregiver Discharge Instructions Discharge Activity: activity as tolerated Other Discharge Activity Instructions:: Pelvic rest x 2 weeks. Return to clinic weekly to check quantitative hCGs. Return to Cancer Center at 1100 on 01/12/25 for MTX tx, Other Discharge Diet Instructions: General Diet Education Materials: Surgery Anesthesia After, Ectopic , After Laparoscopic Treatment ..., Understanding Ovarian Cysts, Treatment for Ovarian Cysts, ED Methotrexate for Ectopic ... Print Language: Guatemalan Activity Restrictions/Additional Instructions: Pelvic rest x 2weeks. No heavy exercise or lifting weights for 2 to 4 weeks. Return to the ER for increasing abdominal pain, nausea vomiting or fevers. Stand Alone Forms: Kendy Award Info., Patient Portal Info Letter Discharge Order Discharge Orders: Discharge (Routine); Ordered 01/10/25 Ordered By: Marina [facility] ([facility]) (1) Ectopic Qualifiers: Location of ectopic : unspecified location Intrauterine status: without intrauterine Qualified Code(s): O00.90 - Unspecified ectopic without intrauterine
[2025-01-10 15:48] LABS: Basophils % (Auto) 1 % (0-2.5); Eosinophils # (Auto) 0.1 Thou/mm3 (0.0-0.5); Eosinophils % (Auto) 1 % (0-10); Hematocrit 27.7 % (36.0-46.0); Hemoglobin 9.5 g/dL (12.0-16.0); Immature Granulocytes % (Auto) 0 % (0-0); Immature Granulocytes Auto 0.01 Thou/mm3 (0.00-0.00); Lymphocytes # (Auto) 2.4 Thou/mm3 (1.0-4.8); Lymphocytes % (Auto) 44 % (10-50); Mean Corpuscular HGB Conc 34.3 g/dl (31.0-37.0); Mean Corpuscular Hemoglobin 27.8 pg (25.0-35.0); Mean Corpuscular Volume 81 fL (80-100); Monocytes # (Auto) 0.4 Thou/mm3 (0.0-0.8); Monocytes % (Auto) 8 % (0-12); Neutrophils # (Auto) 2.5 Thou/mm3 (1.8-7.7); Neutrophils % (Auto) 46 % (37-80); Nucleated Red Blood Cell % 0 /100 WBC (0); Platelet Count 159 Thou/mm3 (140-440); Red Blood Count 3.42 Miln/mm3 (4.00-5.20); White Blood Count 5.4 Thou/mm3 (3.6-11.0)
== END 2025-01-10 17:33 | disposition home or self-care (01) ==
LOC: SERX 07:49 → S2EX 08:31 → S3SX 19:44
PROVIDERS: Nurse Anesthetist, Certified Registered; Admitting Provider Obstetrics & Gynecology; Emergency Provider Emergency Medicine; Visit Provider Obstetrics & Gynecology
PROC: (CPT 49320; principal; 2025-01-09 08:00)
PROC: (CPT 58301; 2025-01-09 08:00)
DX: O00.91 Unspecified ectopic pregnancy with intrauterine pregnancy (principal); K66.1 Hemoperitoneum; N83.11 Corpus luteum cyst of right ovary; N39.0 Urinary tract infection, site not specified; D62 Acute posthemorrhagic anemia; Z3A.00 Weeks of gestation of pregnancy not specified; Z97.5 Presence of (intrauterine) contraceptive device; O08.83 Urinary tract infection following an ectopic and molar pregnancy; Z01.810 Encounter for preprocedural cardiovascular examination
CPT/HCPCS: 58661; 58301; 51702; 36415; 36430; 76830; 80053; 81001; 81025; 82150; 82248; 83690; 83735; 84145; 84702; 84703; 85025; 85652; 86140; 86850; 86900; 86901; 86923; 87086; 96361; 96365; 96366; 96375; 96376; 99285; A4217; A4649; G0378; J0131; J0696; J1171; J2250; J2371; J2405; J2704; J3010; J3480; J3490; J7030; J7050; J7120; P9016; P9045; A9270; J1596; J7999

== ENCOUNTER 2025-01-11 10:26 | Emergency (ER) | payer MEDICAID, SELFPAY ==
[2025-01-11 10:59] VITALS: BP 108/74; PULSE 88; RESP 18; TEMP 37.1; O2SAT 99; BMI 33.1
--- NOTE | 2025-01-11 11:03 | XR_ITS ---
Examination: Pelvic ultrasound, transabdominal, complete Technique: Transabdominal ultrasound of the pelvis performed using grayscale imaging Date and time of exam: January 11, 2025 1236 hours INDICATIONS: Vaginal bleeding and pelvic pain beginning today, post surgery 3 days ago for ruptured cyst FINDINGS: Uterus 9.8 cm endometrial stripe 0.5 cm No uterine mass Right ovary 4.2 cm arterial flow Left ovary 4.0 cm arterial flow mild to moderate free fluid in the cul-de-sac and left adnexal region IMPRESSION: No uterine mass Mild to moderate free fluid in the cul-de-sac and left adnexal region
--- NOTE | 2025-01-11 11:04 | EDRME_ITS ---
<Statement entered by Marina Rodriguez ([facility]), - 01/11/25 22:30> Pt was not seen by me in the ER on 01/11/25. I was verbally consulted about her care by Dr Curry. Rapid Medical Screening Exam RME Arrival date/time: 01/11/25 10:26 24-year-old female presents emergency department today for complaint of vaginal bleeding patient reports that she had surgery for ectopic on Thursday Chief Complaint: Vaginal Bleeding Time Seen by Provider: 01/11/25 10:36 Vital signs: Vital Signs Temperature 98.7 F 01/11/25 10:59 Pulse Rate 88 01/11/25 10:59 Respiratory Rate 18 01/11/25 10:59 Blood Pressure 108/74 01/11/25 10:59 Pulse Oximetry (%) 99 01/11/25 10:59 Oxygen Delivery Method Room Air 01/11/25 10:59
[2025-01-11 11:29] VITALS: BP 118/70; PULSE 78; RESP 18; TEMP 36.8; O2SAT 98
--- NOTE | 2025-01-11 11:40 | PC.NURSE ---
PT ARRIVED TO THE ED WITH SPOUSE FOR INCREASED VAGINAL BLEEDING. PT STATES BLEEDING HAS BEEN OCCURING INTERMITTED FOR A WEEK, BUT LAST NIGHT AROUND 2200 THE BLEEDING INCREASED. PT REPORTS LARGE AMOUNTS OF RED BLOOD
[2025-01-11 12:03] LABS: Basophils % (Auto) 0 % (0-2.5); Eosinophils # (Auto) 0.1 Thou/mm3 (0.0-0.5); Eosinophils % (Auto) 2 % (0-10); Hematocrit 28.7 % (36.0-46.0); Hemoglobin 9.8 g/dL (12.0-16.0); Immature Granulocytes % (Auto) 0 % (0-0); Immature Granulocytes Auto 0.02 Thou/mm3 (0.00-0.00); Lymphocytes # (Auto) 2.2 Thou/mm3 (1.0-4.8); Lymphocytes % (Auto) 39 % (10-50); Mean Corpuscular HGB Conc 34.1 g/dl (31.0-37.0); Mean Corpuscular Hemoglobin 27.8 pg (25.0-35.0); Mean Corpuscular Volume 81 fL (80-100); Monocytes # (Auto) 0.4 Thou/mm3 (0.0-0.8); Monocytes % (Auto) 7 % (0-12); Neutrophils # (Auto) 2.9 Thou/mm3 (1.8-7.7); Neutrophils % (Auto) 51 % (37-80); Nucleated Red Blood Cell % 0 /100 WBC (0); Platelet Count 207 Thou/mm3 (140-440); RDW Standard Deviation 40.9 fL (36.4-46.3); Red Blood Count 3.53 Miln/mm3 (4.00-5.20); White Blood Count 5.7 Thou/mm3 (3.6-11.0)
--- NOTE | 2025-01-11 12:07 | PD.EDVAGBL ---
ED OB Contraction Preg RMI/HPI General Chief complaint: Vaginal Bleeding Stated complaint: HEAVY VAG BLEEDING. SURG MON FOR EPTOPIC PREG. Time Seen by Provider: 01/11/25 10:36 Arrival date/time: 01/11/25 10:26 RME / HPI RME / HPI Narrative: 01/11/25 10:26 24-year-old female presents emergency department today for complaint of vaginal bleeding patient reports that she had surgery for ectopic on Thursday DR. CURRY MAIN ED EVALUATION: 24 year old female presents to the ED for evaluation of vaginal bleeding beginning this morning. States she woke up to her pad saturated in blood. While using the restroom noted more blood to gush out and amount to be more than her usual menses. Accompanied by lower abdominal pain, described as cramping in sensation, rating as moderate-severe. Reportedly was evaluated here 2 days ago for vaginal bleeding and abdominal pain, diagnosed with an ectopic , and admitted for surgery. States she underwent laparoscopic surgery 2 days ago and had portion of her right ovary removed secondary to rupture ovarian cyst. States during her admission she received a blood transfusion and at time of discharge did not have any vaginal bleeding. No other associated symptoms reported. Denies fevers, chills, chest pain, cough, shortness of breath, vomiting, or urinary symptoms. Patient mentioned she called her OBGYN Dr. Rodriguez who advised she come in for further evaluation/treatment. Related Data Previous Rx's ?Medication ?Instructions ?Recorded hydrocodone 5 mg-acetaminophen 325 1 tab PO Q4H PRN pain #30 tabs 01/09/25 mg tablet ketorolac 10 mg tablet 10 mg PO Q6H PRN pain 5 days #20 01/09/25 tabs ondansetron HCl 4 mg tablet 4 mg PO Q6H PRN nausea and 01/09/25 vomiting #20 tabs hydrocodone 5 mg-acetaminophen 325 1 tab PO Q6H PRN pain #20 tabs 01/11/25 mg tablet ketorolac 10 mg tablet 10 mg PO Q6H PRN pain 5 days #20 01/11/25 tabs Allergies Allergy/AdvReac Type Severity Reaction Status Date / Time No Known Allergies Allergy Verified 01/11/25 10:27 Review of Systems Review of Systems Narrative Review of Systems: Constitutional: DENIES; Fevers Eyes: DENIES; Loss of vision Head/Ear/Nose: DENIES; Loss of hearing Throat: DENIES; Dysphagia Cardiovascular: DENIES; Chest pain, dyspnea or syncope Respiratory: DENIES; Shortness of breath Gastrointestinal: SEE HPI +abd pain with vaginal bleeding. DENIES; Rectal bleeding or melena. Genitourinary: DENIES; Dysuria (painful or difficult urination) Musculoskeletal: DENIES; Arthralgia (pain in a joint),; Skin: DENIES; Rash Neurological: DENIES; Loss of function or movement Psychiatric: DENIES; recent major life stressor, emotional problem, illicit drug use or abuse Allergic/Immunologic: DENIES; Urticaria (hives) Past Medical History Past Medical History CARDIAC: Negative Cardiac Disorders GASTROINTESTINAL: Negative Gastrointestinal Disorders REPRODUCTIVE: Positive Previous Pregnancies MUSCULOSKELETAL: Negative Musculoskeletal Disorders Surgical History SURGICAL: Negative Cardiac Surgery OTHER SURGICAL HX: D&C 2015 Social History SMOKING STATUS: Never smoker SECOND HAND EXPOSURE: No Course Quality Measures none Orders Category Date Time Status US pelvic complete Stat Exams 01/11/25 11:03 Completed Beta HCG,Quantitative Stat Lab 01/11/25 11:43 Completed CBC Stat Lab 01/11/25 11:43 Completed Comprehensive Metabolic Panel Stat Lab 01/11/25 11:43 Completed Partial Thromboplastin Time Stat Lab 01/11/25 11:43 Completed Prothrombin Time with INR Stat Lab 01/11/25 11:43 Completed Ketorolac Inj [Toradol Inj] Med 01/11/25 15:00 Discontinued 30 mg IVP X1 ONE Morphine Inj Med 01/11/25 15:00 Discontinued 4 mg IVP X1 ONE Ondansetron Inj [Zofran Inj] Med 01/11/25 15:00 Discontinued 4 mg IV X1 ONE Vital Signs Vital signs: Vital Signs Temperature 98.7 F 01/11/25 10:59 Pulse Rate 88 01/11/25 10:59 Respiratory Rate 18 01/11/25 10:59 Blood Pressure 108/74 01/11/25 10:59 Pulse Oximetry (%) 99 01/11/25 10:59 Oxygen Delivery Method Room Air 01/11/25 10:59 Pulse ox is 99% on room air which is adequate. Vaginal Bleeding MDM Narrative MDM Narrative: Crystal Palmer am scribing for and in the presence of Dr. Curry. Patient had a medical workup for her abdominal pain and vaginal bleeding included reviewing the medical records for had laparoscopic surgery for an ectopic 2 days ago and verbal report from Dr Rodriguez who I spoke with specifically states there was lots of blood in the abdominal cavity and this alone will explain lots of her abdominal pain and symptoms. Patient also was post to be started on Toradol and hydrocodone and patient informs me that these prescription were not able to be filled because of some insurance issue. Patient's quantitative hCG has come down from 18 100-325 today. She is also scheduled to go to the infusion center tomorrow to get methotrexate. Reevaluation of the abdomen shows this still to be soft with some diffuse vague tenderness and she seems to be having lots of cramping from her uterus. Dr Rodriguez also want to continue Methergine and was going to give an oral prescription for this. After my reevaluation I gave the patient some Toradol and morphine and will reevaluate her pain after that. 1450: After speaking with OBGYN Dr. Rodriguez, I was made aware that patient was supposed to be sent home with a prescription for Toradol and Hydrocodone. However, patient states she was unable to get medications filled due to an insurance problem. Patient data External records reviewed:: [facility] previous records (I reviewed operative report from 01/09/2025 ) Clinical information provided by:: patient Social determinants that could affect healthcare access:: none Patient has the following chronic illnesses:: Hx of previous pregnancies, A1 s/p right partial oophorectomy How is presenting disease/condition affected by chronic disease/condition?: exacerbated by Evaluation data The following diagnostics were reviewed and interpreted by me:: lab results and radiology exam(s) Lab and/or radiology exams considered but not ordered:: None Interpretation Summary: Ordering Physician: Kamran Curtis NP, NP Date of Service: 01/11/25 Procedure(s): US pelvic complete Accession Number(s): [id number] cc: Kamran Curtis NP, NP; Kan Raza MD; Nathalie Ornelas NP~ Examination: Pelvic ultrasound, transabdominal, complete Technique: Transabdominal ultrasound of the pelvis performed using grayscale imaging Date and time of exam: January 11, 2025 1236 hours INDICATIONS: Vaginal bleeding and pelvic pain beginning today, post surgery 3 days ago for ruptured cyst FINDINGS: Uterus 9.8 cm endometrial stripe 0.5 cm No uterine mass Right ovary 4.2 cm arterial flow Left ovary 4.0 cm arterial flow mild to moderate free fluid in the cul-de-sac and left adnexal region IMPRESSION: No uterine mass Mild to moderate free fluid in the cul-de-sac and left adnexal region Dictated By: Kan Raza MD Signed By: <Electronically signed by Kan Raza MD in OV> 01/11/25 1320 Medications / Prescriptions Medications or Prescriptions considered but not ordered:: None Medication administrations:: Medication Administration History Discontinued Medications Ketorolac Tromethamine (Ketorolac Inj 30 Mg/Ml Vial) 30 mg IVP X1 ONE Stop: 01/11/25 15:01 Last Admin: 01/11/25 15:50 Dose: 30 mg Documented By: VG Morphine Sulfate (Morphine Sulf Inj 10 Mg/Ml Vial) 4 mg IVP X1 ONE Stop: 01/11/25 15:01 Last Admin: 01/11/25 15:50 Dose: 4 mg Documented By: VG Ondansetron HCl (Ondansetron Inj 2 Mg/Ml Inj 2 Ml) 4 mg IV X1 ONE; Protocol Stop: 01/11/25 15:01 Last Admin: 01/11/25 15:50 Dose: 4 mg Documented By: VG See above Consultations Consultation(s) initiated? (list below): Yes Consultation #1 (Physician, Specialty, Details): I spoke with OBGYN Dr. Rodriguez. Discussed patients PMHx, HPI, ED course, exam findings, labs, and radiology results. States during patients lap surgery 2 days ago there was a lot of blood in the abdomen. Additionally reported patient was supposed to go home with a prescription for Toradol and Hydrocodone. Time: 14:45 Consultation #2 (Physician, Specialty, Details): Dr Rodriguez was recontacted at 1630 hrs. and informed that the prescription she sent in 2 days ago did not go through and she would take care of the hydrocodone. We also further discussed the follow-up with the infusion center for methotrexate tomorrow and she is also sending in a prescription for Methergine Diagnosis Vaginal Bleeding Differential Diagnosis: dysfunctional uterine bleeding, incomplete , ectopic without intrauterine and vaginal bleeding Most likely diagnosis given after review of the tests above:: Patient had ectopic with hemoperitoneum causing pain and that hCG is going down. Vaginal bleeding secondary to ectopic Admission Indicated Admission indicated?: not indicated Admission Request Was there a request for admission?: No Disposition Plan Disposition Plan: Discharge Discharge Attestation Discharge Attestation: Patient was advised and knows return if getting worse in any way and follow-up with her doctor. Pain medicines have been prescribed by Dr Rodriguez see narrative in MDM about Discharge Plan Plan Patient Disposition: HOME (Self Care) Prescriptions/Referrals Prescriptions/Med Rec: New hydrocodone-acetaminophen 5-325 mg tablet 1 tab PO Q6H MDD 4 PRN (Reason: pain) Qty: 20 0RF ketorolac 10 mg tablet 10 mg PO Q6H PRN (Reason: pain) 5 Days Qty: 20 0RF No Action hydrocodone-acetaminophen 5-325 mg tablet 1 tab PO Q4H MDD 6 PRN (Reason: pain) Qty: 30 0RF ondansetron HCl 4 mg tablet 4 mg PO Q6H PRN (Reason: nausea and vomiting) Qty: 20 0RF ketorolac 10 mg tablet 10 mg PO Q6H PRN (Reason: pain) 5 Days Qty: 20 0RF Referrals: Nathalie Ornelas NP [Primary Care Provider] - In 1 week Problem List Clinical Impression: Acute postoperative abdominal pain, Ruptured corpus luteum, Hemoperitoneum, Status post laparoscopic surgery Impression comment: Abdominal pain secondary to residual hemoperitoneum status post laparoscopic surgery for ectopic Patient/Caregiver Discharge Instructions Additional Instructions: As discussed your vaginal bleeding is secondary to the ectopic and your declining hormone levels. With this you are having uterine cramps and generalized abdominal pain from blood in the abdominal cavity from the recent ectopic and surgery.. If you are getting worse with fevers or sick in any way please return for reevaluation or recontact Dr Rodriguez your doctor. Follow-up with your appointment tomorrow to get your methotrexate. Dr Rodriguez states she was going to prescribe Methergine for your uterine cramps and bleeding. She is also can make sure your hydrocodone prescription is successfully transmitted. If you continue to have any problems contact Dr Rodriguez or return here for reevaluation. Print Language: [place] Stand Alone Forms: Patient Portal Info Letter
[2025-01-11 12:14] LABS: Partial Thromboplastin Time 27.4 Seconds (22.0-36.0); Prothrombin Time 11.1 Seconds (9.0-12.2)
[2025-01-11 12:18] LABS: Alanine Aminotransferase 40 U/L (10-49); Albumin, Serum 3.7 gm/dL (3.5-5.0); Albumin/Globulin Ratio 1.4 (1.2-2.2); Alkaline Phosphatase 66 U/L (46-116); Anion Gap 7 (7-16); Aspartate Amino Transferase 30 U/L (0-34); BUN/Creatinine Ratio 6 Ratio (12-20); Bilirubin,Total 0.9 mg/dL (0.3-1.2); Blood Urea Nitrogen < 5 mg/dL (9-23); Calcium 8.5 mg/dL (8.3-10.6); Calcium (Corrected) 8.7 mg/dL (8.5-10.1); Carbon Dioxide 24.7 mMol/L (20.0-31.0); Chloride 110 mMol/L (98-107); Creatinine (Component) 0.8 mg/dL (0.6-1.3); Estimated Creatinine Clearance 118.3 mL/min (>60); Globulin 2.6 gm/dL (2.3-3.5); Glucose 84 mg/dL (74-106); Osmolality,Calculated 279 (275-295); Potassium 3.6 mMol/L (3.4-5.1); Sodium 142 mMol/L (136-145); Total Protein 6.3 gm/dL (5.7-8.2); eGFR > 60 See Note
--- NOTE | 2025-01-11 12:19 | PC.NURSE ---
US CALLED FOR PROCEDURE
[2025-01-11 13:31] LABS: Beta HCG,Quantitative 325 mIU/mL (<5.0)
[2025-01-11 13:35] VITALS: BP 118/70; PULSE 68; RESP 14; O2SAT 97
--- NOTE | 2025-01-11 14:16 | PC.NURSE ---
Dr. Curry made aware, all labs/xrays are resulted.
[2025-01-11 14:39] VITALS: BP 123/73; PULSE 77; RESP 16; TEMP 36.9; O2SAT 99
--- NOTE | 2025-01-11 14:49 | PC.NURSE ---
OBSERVED PT AMBULATE DOWN THE FAYE AND BACK. PT HAS A STEADY GAIT. SMALL OF AMOUNT OF BLOOD NOTED ON HER PAD & SMALL AMOUNT OF CLOTS. PROVIDER NOTFIED
[2025-01-11] MEDS: MORPHINE SULF INJ 10 MG/ML VIAL 4 MG IVP (15:50)
[2025-01-11] MEDS: KETOROLAC INJ 30 MG/ML VIAL IVP (15:50)
[2025-01-11] MEDS: ONDANSETRON INJ 2 MG/ML INJ 2 ML 4 MG IV (15:50)
--- NOTE | 2025-01-11 16:32 | PC.NURSE ---
ASSESSED PT PAIN. PT REPORTED A 0/10 PAIN. ASSESSED PATIENT VAGINA BLEEDING. PAD HAD A SMALL AMOUNT OF BLEEDING.
--- NOTE | 2025-01-11 16:34 | PC.NURSE ---
PROVIDER NOTIFIED OF AMOUNT OF BLEEDING
[2025-01-11 16:58] VITALS: BP 116/75; PULSE 73; RESP 16; TEMP 36.9; O2SAT 98
--- NOTE | 2025-01-11 17:01 | PD.LDDS ---
DS: Providers Provider Primary care physician: Nathalie Ornelas NP Attending Provider on DC: Marina Rodriguez MD ([facility]) Discharging Provider: Marina Rodriguez MD ([facility]) Summary/Hosp Course Time Spent with Patient Time attestation: Total time spent providing and/or coordinating discharge services: Exam Vital Signs Temp Pulse Resp BP Pulse Ox O2 Del Method 98.5 F 73 16 116/75 98 Room Air 01/11/25 16:58 01/11/25 16:58 01/11/25 16:58 01/11/25 16:58 01/11/25 16:58 01/11/25 14:39 Discharge Plan Plan Patient Disposition: HOME (Self Care) Prescriptions/Referrals Prescriptions/Med Rec: New hydrocodone-acetaminophen 5-325 mg tablet 1 tab PO Q6H MDD 4 PRN (Reason: pain) Qty: 20 0RF ketorolac 10 mg tablet 10 mg PO Q6H PRN (Reason: pain) 5 Days Qty: 20 0RF No Action hydrocodone-acetaminophen 5-325 mg tablet 1 tab PO Q4H MDD 6 PRN (Reason: pain) Qty: 30 0RF ondansetron HCl 4 mg tablet 4 mg PO Q6H PRN (Reason: nausea and vomiting) Qty: 20 0RF ketorolac 10 mg tablet 10 mg PO Q6H PRN (Reason: pain) 5 Days Qty: 20 0RF Referrals: Nathalie Ornelas NP [Primary Care Provider] - In 1 week Problem List Clinical Impression: Acute postoperative abdominal pain, Ruptured corpus luteum, Hemoperitoneum, Status post laparoscopic surgery Impression comment: Abdominal pain secondary to residual hemoperitoneum status post laparoscopic surgery for ectopic Patient/Caregiver Discharge Instructions Additional Instructions: As discussed your vaginal bleeding is secondary to the ectopic and your declining hormone levels. With this you are having uterine cramps and generalized abdominal pain from blood in the abdominal cavity from the recent ectopic and surgery.. If you are getting worse with fevers or sick in any way please return for reevaluation or recontact Dr Rodriguez your doctor. Follow-up with your appointment tomorrow to get your methotrexate. Dr Rodriguez states she was going to prescribe Methergine for your uterine cramps and bleeding. She is also can make sure your hydrocodone prescription is successfully transmitted. If you continue to have any problems contact Dr Rodriguez or return here for reevaluation. Print Language: Macedonian Stand Alone Forms: Patient Portal Info Letter Planned Discharge Date 01/11/25
== END 2025-01-11 17:00 | disposition home or self-care (01) ==
PROVIDERS: Nurse Practitioner Primary Care; Emergency Provider Emergency Medicine; PCP Nurse Practitioner Family
DX: K66.1 Hemoperitoneum (principal); Z98.890 Other specified postprocedural states
CPT/HCPCS: 36415; 76856; 80053; 84702; 85025; 85610; 85730; 99284; J1885; J2270; J2405

== ENCOUNTER 2025-01-12 10:46 | Outpatient (RCR) | payer MEDICAID, SELFPAY | END 2025-01-18 23:59 | disposition home or self-care (01) | LOC: SCTI 10:46 | PROVIDERS: PCP Obstetrics & Gynecology; Referring Provider Obstetrics & Gynecology; Visit Provider Obstetrics & Gynecology | DX: O00.90 Unspecified ectopic pregnancy without intrauterine pregnancy (principal) | CPT/HCPCS: 96372; J9260 ==

== ENCOUNTER 2025-01-18 10:12 | Outpatient (AMB) | payer MEDICAID, SELFPAY ==
[2025-01-18 10:55] VITALS: BP 111/76; PULSE 91; RESP 18; TEMP 36.7; O2SAT 98; BMI 32.8
--- NOTE | 2025-01-18 10:55 | AMB.GYNCLNOT ---
Vital Signs 01/18/25 10:55 Height 1.65 m Height Method Stated Weight 89.528 kg Weight Measurement Method Standing Scale BMI 32.8 BP 111/76 Blood Pressure Source Automatic Cuff Blood Pressure Location Right Upper Arm Position Sitting Respiration 18 Pulse 91 Pulse Source Monitor Temp 98.1 F Temp Source Oral Pulse Oximetry (%) 98 Oxygen Delivery Method Room Air Allergies/Home Meds Allergies & Medications Allergies No Known Allergies Allergy (Verified 01/18/25 10:56) Medication Reconciliation hydrocodone 5 mg-acetaminophen 325 mg tablet 1 tab PO Q4H PRN pain #30 tabs 01/09/25 [Rx Confirmed 01/18/25] ondansetron HCl 4 mg tablet 4 mg PO Q6H PRN nausea and vomiting #20 tabs 01/09/25 [Rx Confirmed 01/18/25] hydrocodone 5 mg-acetaminophen 325 mg tablet 1 tab PO Q6H PRN pain #20 tabs 01/11/25 [Rx Confirmed 01/18/25] Intake Visit Data Collection New Patient or Established: Established Patient (seen at [facility] within 3 years) Reason for Visit:: Postop week #2 status post laparoscopy for ectopic Seen by Clinical Staff ONLY (RN/MA): No Transmission Technician Required: No Do You Feel Safe at Home: Yes Authorities Contacted: N/A PCP or OBGYN visit in last 3 months: Yes Hx Now: Yes Are you currently on any form of Control: No Pain Present Currently: No Pain Scale Used: Delcid-Oseguera/Numerical Pain scale:: 0 Smoking Status Smoking Status: Never smoker Mental Health Tech history Mental Health Tech History Menstrual regularity: regular Flow: normal Monthly: Yes How many days does period last: 5 Age at menarche: 9 Menopausal: No Currently sexually active: Yes Questionnaires Covid-19 Vaccine Questionnaire Has patient been vacinated for Covid-19 Have you been vacinated for Covid-19: Yes PHQ-9 PHQ-2 Over the last 2 weeks, how often have you been bothered by any of the following problems? 1. Little interest or pleasure in doing things: not at all 2. Feeling down, depressed, or hopeless: not at all Total score: 0 PHQ-9 3. Trouble falling or staying asleep, or sleeping too much: Not at all 4. Feeling tired or having little energy: Not at all 5. Poor appetite or overeating: Not at all 6. Feeling bad about yourself - or that you are a failure or have let yourself or your family down: Not at all 7. Trouble concentrating on things, such as reading the newspaper or watching television: Not at all 8. Moving or speaking so slowly that other people could have noticed? - Or the opposite - being so fidgety or restless that you have been moving around a lot more than usual: not at all 9. Thoughts that you would be better off or of hurting yourself in some way: Not at all Total score: 0 Source: Developed by Drs. Jesus Dunn, Sophie Yeh, Rajendra Hagan and colleagues, with an educational yamil from [employer]. Depression screen completed yes Social History Living Situation History Marital Status: Lives With: Family Housing: House Housing Other:: Has a 1-year-old 2-year-old and 4-year-old at home Tobacco History Smoking Status: Never smoker Second Hand Smoke Exposure: No Alcohol History Alcohol Intake: Never Domestic Abuse History Do You Feel Safe at Home: Yes Past Medical History Past Medical History Have you ever been diagnosed with any of the following: Neurological Problems Seizures: No Cardiology Problems Congestive Heart Failure: No Respiratory Problems Chronic Obstructive Pulmonary Disease (COPD): No Asthma: No Genital/Urinary Problems Renal Disease: No Reproductive Problems Previous Pregnancies: Yes Endocrine Problems Diabetes Mellitus Type 1: No Diabetes Mellitus Type 2: No Blood Problems Sickle Cell Disease: No Other Problems Blood Transfusions: No Anesthesia Reactions: No History of Present Illness HPI Narrative The patient is a 24-year-old -0-2-3 admitted 01/09/25 through the emergency room for a ruptured ectopic . The patient underwent a laparoscopy and partial right oophorectomy as the ectopic appeared to be on her right ovary. The patient did lose a lot of blood before the case and ended up staying overnight and was transfused 2 units of packed red blood cells. She again presented to the ER on 01/11/25 with more pain. Her quantitative hCG before surgery was 1800, in the ER the day after discharge it was already down to 325. She just had a quantitative hCG drawn yesterday and it resulted at 28. Of note patient was given one dose of methotrexate on 01/12/25 as I was not sure if the was in the fallopian tube. Interestingly, the pathology report came back with chorionic villi embedded in the patient's ovary suggestive of a ruptured right ovarian ectopic . This result was reviewed with the patient today. Review of Systems Review of Systems Narrative Review of Systems: Patient denies heavy bleeding. She denies is fit denies feeling lightheaded or short of breath. She wants to know if she can start exercising. She wants me to look at her umbilical incision as she feels this is draining a little bit of clear fluid. No fevers chills Exam Narrative Physical exam: Patient color appears good she does not look anemic. Abdomen is soft nontender, nondistended her incisions are healing nicely. Her skin glue was removed from the umbilical incision to reveal a little bit of serous drainage but otherwise it is clean dry and intact General General Appearance: alert, in no apparent distress, comfortable, cooperative, healthy appearing and well groomed Assessment & Plan Diagnosis / Problem List (1) Ruptured ectopic : Status: Acute Plan: Patient's status post 2 units packed red blood cells. Status post 1 dose of methotrexate. Her quantitative HCG dropped from 1800 down to 28. Plan to check one more test in a week. Patient's will pursue vasectomy and they are going to use condoms for contraception in the meantime. Additional Plan Follow Up: 1 Week Office Procedures OB Clinic LOC & Office Proc's Nursing/Assessment Patient Status: Established Patient OB Clinic Nursing Assessment: Medication Reconciliation, Update PMH in EMR and Vital Signs OB Clinic Coordination of Care: Complex Care and Chronic Disease 1-5, Consent,records obtained, informed consent, Education Simp Pt/Fam, Lab and Imaging orders, Results/Orders obtained and Staff clarify orders Established Patient Charge Established Patient Point Assignment: 105 Established Patient Point Charge: EP Level 3 (80-115)
== END 2025-01-18 11:11 | disposition home or self-care (01) ==
LOC: HODSOBC 10:12
PROVIDERS: Supervising Provider Obstetrics & Gynecology; Visit Provider Obstetrics & Gynecology
DX: O00.90 Unspecified ectopic pregnancy without intrauterine pregnancy (principal)
CPT/HCPCS: 99213; G0463